=== PATIENT | female | born 1985 | race Caucasian/White ===

== ENCOUNTER 2021-09-03 10:10 | Observation (INO) ==
--- NOTE | 2021-08-28 13:52 | Anesthesiology Consultation ---
Date of Service August 28, 2021 Assessment & Plan (1) Encounter for pre-operative examination: - COVID screening: Per assessment on 08/28: No known COVID-19 positive contacts or current COVID-19 related symptoms. Travel screen negative. Patient vaccinated. Surgeon arranging preop COVID testing. Awaiting results. - Check test AM DOS Chart Review Chart Review: Acceptable Risk for Surgery and Patient NOT seen in Pre Admission Testing History Surgery Operation Date: 09/03/21 10:00 Proposed Procedures p Robotic Operative Hysteroscopic Myomectomy (Removal of Uterine Fibroid) With or Without Dilation and Curettage, Operative Laparoscopic Myomectomy - Ruddy Del Cid MD Height/Weight Height: 5 ft 3 in Weight: 49.895 kg Allergies Allergy/AdvReac Type Severity Reaction Status Date / Time No Known Allergies Allergy Verified 08/28/21 13:04 Medications Home Medications Medication Instructions Recorded Confirmed Last Taken calcitriol 0.25 mcg capsule 0.25 mcg PO QAM 08/28/21 08/28/21 Unknown levothyroxine 137 mcg tablet 137 mcg PO QAM 08/28/21 08/28/21 Unknown Past Medical History Medical History 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
[~2021-09-03 10:10] MED LIST: LACTATED RINGER'S 1,000 ML IV SCH; LR 15ML/HR IV SCH; PHENAZOPYRIDINE HCL 100 MG TAB PO SCH
[2021-09-03] MEDS ORDERED: MIDAZOLAM HCL 1 MG/ML 2ML VIAL ONE (10:39)
[2021-09-03] MEDS ORDERED: fentaNYL citrate 100 MCG/2 ML VIAL ONE ×2 (10:39→16:37)
[2021-09-03 11:22] LABS: Hemoglobin 7.4 g/dl (12.0-16.0); Mean Corpuscular Hgb Conc 27.4 g/dL (32.0-36.0); Mean Corpuscular Volume 69.4 fL (80.0-100.0); Mean Platelet Volume 10.4 fL (9.4-12.3); Platelet Count 257 K/uL (130-400); RDW Coefficient of Variation 18.6 % (11.5-14.5); RDW Standard Deviation 46.3 fL (36.4-46.3); Red Blood Count 3.89 M/uL (3.93-5.22); White Blood Count 4.15 K/ul (4.8-10.8)
[2021-09-03] MEDS ORDERED: SODIUM CHLORIDE 0.9% 250 ML IV PRN ×2 (11:27→18:28)
[2021-09-03] MEDS ORDERED: BUPIVACAINE 0.5 % 5 MG/1 ML MPF 30ML VIAL ONE (11:30)
[2021-09-03] MEDS ORDERED: fentaNYL citrate 100 MCG/2 ML VIAL IV PRN (11:32)
[2021-09-03] MEDS ORDERED: ePHEDrine sulfate 50 MG/ML AMP IV PRN (11:32)
[2021-09-03] MEDS ORDERED: ONDANSETRON INJ 2 MG/ML 2 ML VIAL IV PRN ×2 (11:32→18:00)
[2021-09-03] MEDS ORDERED: ATROPINE SULFATE 0.1 MG/ML 10ML SYR IV PRN (11:32)
[2021-09-03 11:34] LABS: Basophils # (auto) 0.01 K/uL (0-0.2); Basophils % (auto) 0.2 %; Eosinophils # (auto) 0.08 K/uL (0-0.50); Eosinophils % (auto) 1.9 %; Immature Granulocytes # (auto) 0.01 K/uL (0.00-0.02); Immature Granulocytes % (auto) 0.2 %; Lymphocytes # (auto) 1.45 K/uL (1.2-3.4); Lymphocytes % (auto) 34.9 %; Microcytosis Present; Monocytes # (auto) 0.41 K/uL (0.24-0.82); Monocytes % (auto) 9.9 %; Neutrophils # (auto) 2.19 K/uL (1.4-6.5); Neutrophils % (auto) 52.9 %; Poikilocytosis Present
[2021-09-03] MEDS ORDERED: VASOPRESSIN 20 UNIT/ML VIAL ONE (11:41)
--- NOTE | 2021-09-03 11:45 | History & Physical Bridge Note ---
Date of Service September 03, 2021 History & Physical Bridge Note I have examined the patient, reviewed the History & Physical and in the interval since the performance of the History & Physical I have noted the following changes of clinical significance: no changes noted
[2021-09-03] MEDS ORDERED: ROCURONIUM BROMIDE 10 MG/ML 5 ML VIAL IV ONE ×4 (13:19→15:41)
[2021-09-03] MEDS ORDERED: PROPOFOL IV EMULSION 10 MG/ML 20 ML VIAL IV ONE (13:19)
[2021-09-03] MEDS ORDERED: LIDOCAINE 2% MPF LOCAL 5 ML VIAL INFIL ONE (13:19)
[2021-09-03] MEDS ORDERED: NEOSTIGMINE METHYLSULFATE 1 MG/ML 10ML VIAL ONE (13:19)
[2021-09-03] MEDS ORDERED: KETOROLAC 30 MG/ML VIAL ONE (13:19)
[2021-09-03] MEDS ORDERED: ONDANSETRON INJ 2 MG/ML 2 ML VIAL ONE (13:19)
[2021-09-03] MEDS ORDERED: DEXAMETHASONE SOD INJ 4 MG/ML VIAL ONE (13:19)
[2021-09-03] MEDS ORDERED: GLYCOPYRROLATE 0.2 MG/ML VIAL ONE (13:19)
[2021-09-03] MEDS ORDERED: LARYING-O-JET KIT (LTA) ONE (13:19)
[2021-09-03] MEDS ORDERED: TISSEEL FIBRIN SEALANT 4ML TOP ONE (14:04)
[2021-09-03] MEDS ORDERED: FLOSEAL HEMOSTATIC MATRIX 10ML TOP ONE (17:07)
[2021-09-03] MEDS ORDERED: ARISTA ABSORBABLE HEMOSTAT 3GM TOP ONE (17:17)
[2021-09-03] MEDS ORDERED: ALBUMIN HUMAN 5% 12.5 GM/250 ML VIAL IV ONE (17:37)
[2021-09-03] MEDS ORDERED: oxyCODONE/ACETAMINOPHEN 5mg/325mg TAB PO PRN ×2 (18:00)
--- NOTE | 2021-09-03 18:00 | Post Operative Brief Note ---
PG Immediate Post Op with CF Date of Surgery September 03, 2021 Pre & Post Diagnosis Operation Date: 09/03/21 12:55 Pre-Op Diagnosis: Uterine Fibroid, Abnormal, Uterine Bleeding Post-Op Diagnosis: Uterine Fibroid, Abnormal, Uterine Bleeding I identified the patient and participated in the time-out.: No Procedure Operation Date: 09/03/21 12:55 Actual Procedures p Robotic Assisted Operative Laparoscopic Myomectomy with Operative Hysteroscopic Myomectomy(Not Applicable) - Ruddy Del Cid MD Surgeon Ruddy Del Cid MD Medical Imaging Director None Estimated Blood Loss 200 Findings Consistent with Post-Op Diagnosis Specimens Specimen Description: A. Fibroid, hysterscopic myomectomy B. Surgically resected uterine fibroid Drains Cano Catheter (18 Fr cano catheter inserted by . Draining clear yellow urine. Anesthesia to monitor urine output. ) THERAPIST RESPIRATORY Major Procedure Codes Laparotomy/Laparoscopic 18537 LPSC Myomectomy THERAPIST RESPIRATORY Minor Procedure Codes Hysteroscopy(ic) 00600 HSC Myomectomy
[2021-09-04] MEDS: ACETAMINOPHEN 325 MG TAB PO PRN ×4 (03:48→17:54)
--- NOTE | 2021-09-04 04:30 | Anesthesiology Progress Note ---
Date of Service September 04, 2021 Anesthesia Post Procedure Vital Signs Vital Signs: Temp Pulse Pulse Pulse Pulse Resp BP 09/04/21 03:30 37.0 C 58 L 18 09/03/21 23:20 37.3 C 86 86 18 09/03/21 21:35 36.9 C 80 16 107/67 09/03/21 20:30 36.9 C 82 16 108/68 09/03/21 19:30 36.9 C 63 14 108/66 09/03/21 19:17 37 C 64 14 09/03/21 19:00 36.6 C 63 14 104/66 09/03/21 18:45 36.7 C 73 15 102/67 09/03/21 18:40 68 13 09/03/21 18:30 73 14 09/03/21 18:20 85 17 09/03/21 18:30 36.6 C 82 16 115/77 09/03/21 19:00 36.6 C 62 16 09/03/21 18:50 59 L 14 09/03/21 18:10 36.4 C L 82 16 09/03/21 10:30 36.8 C 63 18 BP Pulse Ox O2 Del Method O2 Flow Rate 09/04/21 03:30 113/68 Room Air 09/03/21 23:20 111/61 Room Air 09/03/21 21:35 99 0 09/03/21 20:30 99 09/03/21 19:30 97 0 09/03/21 19:17 110/70 99 Room Air 09/03/21 19:00 95 0 09/03/21 18:45 99 0 09/03/21 18:40 109/63 97 Room Air 09/03/21 18:30 108/61 99 Oxymask 6 09/03/21 18:20 114/60 100 Oxymask 6 09/03/21 18:30 100 6 09/03/21 19:00 104/66 94 Room Air 09/03/21 18:50 110/66 94 Room Air 09/03/21 18:10 115/77 100 Oxymask 6 09/03/21 10:30 114/67 100 Room Air Pain Intensity Bilateral Abdomen: Pain Intensity: 4 Right Shoulder: Pain Intensity: 4 Transfer of Care Handoff Completed per policy Notes Mental Status: alert / awake / arousable and participated in evaluation Patient Amnestic to Procedure: Yes Nausea / Vomiting: adequately controlled Pain: adequately controlled Airway Patency, RR, SpO2: stable & adequate BP & HR: stable & adequate Hydration State: stable & adequate Anesthetic Complications: no major complications apparent and Pt Satisfied with anesthetic care
[2021-09-04 06:22] LABS: Hematocrit (blood only) 27.4 % (34.1-44.9); Hemoglobin 8.2 g/dl (12.0-16.0)
--- NOTE | 2021-09-04 08:26 | Gynecologic Progress Note ---
Date of Service September 04, 2021 Assessment & Plan (1) Encounter for postoperative care: Plan: Ana Is a 36-year-old status post hysteroscopic and laparoscopic myomectomy. Patient recovering postop. Patient was noted to be acutely anemic prior to the procedure and was given 2 units packed red blood cells. Patient had EBL in the OR of approximately 200 mL. H&H this morning is noted at 8.2 /27.4. this is in reasonable range for the postop blood loss expected in addition to the expected increase from the transfusions. Discussed concern for internal bleeding as the intrauterine vasopressin wears off. Discussed repeat blood counts this afternoon and discharged depend on results. Multiple questions answered patient's satisfaction. Admission and Anticipated Discharge Date Admission Date: September 03, 2021 Subjective day 1 status post hysteroscopic and laparoscopic myomectomy. Patient reports that she is feeling sore and tired but otherwise doing well. Patient reports that she was up for a walk last night and did well. Denies any anemia symptoms at present. reporting very minimal vaginal bleeding. Denies any nausea or vomiting. Physical Exam Gastrointestinal (Abdomen): Inspection/Auscultation: abdomen normal to inspection; abdomen not distended Percussion/Palpation: + abdomen tender and abdomen soft; no guarding and abdomen not rigid Results & Data ([facility]) Vital Signs (Past 12 Hours) Vital Signs Temp Pulse Pulse Pulse Resp BP BP 09/04/21 03:30 37.0 C 58 L 18 113/68 09/03/21 23:20 37.3 C 86 86 18 111/61 09/03/21 21:35 36.9 C 80 16 107/67 09/03/21 20:30 36.9 C 82 16 108/68 Pulse Ox O2 Del Method O2 Flow Rate 09/04/21 03:30 Room Air 09/03/21 23:20 Room Air 09/03/21 21:35 99 0 09/03/21 20:30 99 PG Care Time/CCT Total # of Minutes Spent Total Time Spent with Patient: Total time spent is greater than 50% in coordination of care (as documented) at patient's floor/unit and/or counseling patient: Coding Level of Care Code 61859 Post Operative Follow-Up Diagnoses Encounter for postoperative care Z48.89
[2021-09-04] MEDS: SIMETHICONE 80 MG CHEW PO PRN ×2 (12:23→17:54)
[2021-09-04 13:37] LABS: Hematocrit (blood only) 28.9 % (34.1-44.9); Hemoglobin 8.5 g/dl (12.0-16.0)
[2021-09-05] MEDS: SIMETHICONE 80 MG CHEW PO PRN ×3 (00:26→13:39)
[2021-09-05] MEDS: ACETAMINOPHEN 325 MG TAB PO PRN ×3 (00:26→13:39)
[2021-09-05 07:34] LABS: Hematocrit (blood only) 25.3 % (34.1-44.9); Hemoglobin 7.5 g/dl (12.0-16.0)
[2021-09-05 12:25] LABS: Hematocrit (blood only) 27.8 % (34.1-44.9); Hemoglobin 8.2 g/dl (12.0-16.0)
[2021-09-05 12:40] LABS: Partial Thromboplastin Ratio 1.1; Partial Thromboplastin Time 29.2 Seconds (21.0-31.0); Prothrombin Time 10.5 Seconds (9.0-12.0)
--- NOTE | 2021-09-05 13:03 | Gynecologic Progress Note ---
Date of Service September 05, 2021 Assessment & Plan (1) Encounter for postoperative care: Plan: Ana is day 2 status post hysteroscopic myomectomy and laparoscopic myomectomy. Patient is reporting that she is doing very well today with minimal pain as detailed above. Hemoglobin/ hematocrit had a slight decline compared to yesterday afternoon. Discussed repeat this afternoon with discharge pending results. Patient is requesting discharge as soon as possible. . On re-evaluation at 12:30 p.m. hematocrit and hemoglobin were noted to be within range of yesterday afternoon at 8.2/27.8. findings discussed with patient discussed week will be able to discharge her. Discharge and postop precautions reviewed in detail questions answered patient's satisfaction. Admission and Anticipated Discharge Date Admission Date: September 03, 2021 Mazin Perez is a 36-year-old day 2 postop from a hysteroscopic myomectomy and laparoscopic myomectomy. Patient reports that she is doing very well this morning has minimal pain. Portion reports that she has started to pass gas and bloating and shoulder pain that she was experiencing yesterday has full resolved. Patient's H/H was slightly lower than yesterday which was reviewed with her. Recommend that she hold off any diet today until we have a re- evaluation later on this afternoon. Patient denies any acute events overnight. Patient denies any nausea/ vomiting. patient is requesting discharge as soon as possible. Physical Exam Gastrointestinal (Abdomen): Percussion/Palpation: abdomen soft; abdomen nontender, no guarding and abdomen not rigid Incisions healing well without any drainage noted. Abdomen soft, nontender, nondistended Results & Data ([facility]) Vital Signs (Past 12 Hours) Vital Signs Temp Pulse Resp BP Pulse Ox O2 Del Method 09/05/21 08:00 36.8 C 64 18 111/64 97 Room Air PG Care Time/CCT Total # of Minutes Spent Total Time Spent with Patient: Total time spent is greater than 50% in coordination of care (as documented) at patient's floor/unit and/or counseling patient: Coding Level of Care Code 44686 Post Operative Follow-Up Diagnoses Encounter for postoperative care Z48.89
[2021-09-05 13:16] LABS: Fibrinogen 451 mg/dl (184-400)
== END 2021-09-05 14:26 | disposition home or self-care (01) ==
LOC: 4E2 10:10 → ASU 10:10